=== PATIENT | female | born 1955 | race Caucasian/White ===

== ENCOUNTER → 2018-08-16 | Outpatient (CLI) | payer OTHER | END | disposition home or self-care (01) | LOC: LABWHC1 09:36 | PROVIDERS: ATTEND Psychiatry & Neurology Neurology | DX: C71.0 Malignant neoplasm of cerebrum, except lobes and ventricles (principal); G25.2 Other specified forms of tremor | CPT/HCPCS: 36415; 82565; 84520 ==

== ENCOUNTER → 2018-08-18 | Outpatient (CLI) | payer OTHER ==
--- NOTE | 2018-08-18 14:59 | MR ---
EXAMINATION TYPE: MR brain wo/w con DATE OF EXAM: 08/18/2018 COMPARISON: NONE HISTORY: 62-year-old female brain tumor, tremors TECHNIQUE: Multiplanar, multisequence images of the brain and brainstem were acquired before and aft er administration of 7 mL IV Gadavist. Diffusion weighted imaging is performed. FINDINGS: No evidence for acute infarction, hemorrhage, mass, mass effect, midline shift, herniation, effacemen t of basal cisterns, or extra-axial fluid collection. The ventricles and sulci are age-appropriate with mild cortical atrophy. Major intracranial flow voids are intact. T2/FLAIR weighted sequences show a few scattered foci of bright white matter change in the periventri cular and subcortical regions, numbering 3 on the right. Partially empty sella. Otherwise, midline structures demonstrate normal morphology. The craniocervic al junction is normal. Post contrast images demonstrate no evidence of pathologic enhancement. Dural venous sinuses are pat ent. Mild mucosal thickening ethmoid air cells. Globes are intact. IMPRESSION: 1. No acute intracranial abnormality seen. 2. Trace scattered burden of T2 bright white matter change with 3 foci in the right cerebral hemisphe re, nonspecific, most likely relating to minimal burden of chronic small vessel ischemic disease.. 3. No enhancing intracranial lesions.
== END | disposition home or self-care (01) ==
LOC: RADMRIMAIN 10:41
PROVIDERS: ATTEND Psychiatry & Neurology Neurology
DX: D49.6 Neoplasm of unspecified behavior of brain (principal)
CPT/HCPCS: 70553